=== PATIENT | male | born 2000 | race Caucasian/White ===

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

== ENCOUNTER 2023-04-28 13:10 | Emergency (ER) | payer MEDICAID ==
[2023-04-28] MEDS ORDERED: Lidocaine 1% 5 ML VIAL INJECT ONE (14:23)
== END 2023-04-28 15:05 | disposition home or self-care (01) ==
LOC: JP.ED 13:10
DX: S01.511A Laceration without foreign body of lip, initial encounter (principal); W22.8XXA Striking against or struck by other objects, initial encounter
CPT/HCPCS: 12011; 99282